=== PATIENT | female | born 1985 | race Caucasian/White ===

== ENCOUNTER 2017-11-27 15:08 | Emergency (ER) | payer OTHER ==
[~2017-11-27] VITALS: Ht 157.5 cm; Wt 81.1 kg
[~2017-11-27 15:08] MED LIST: CLEOCIN300 MG PO; IBUPROFEN200 M1 PO; MILK OF MAGN PO; PERCOCET 5/31 TABLET PO; PROAIR HFA8.5 GM IH; SALINE NOSE SPR45 M1 BOTH NARES; SINUS & ALLERG1 EACH PO; TYLENOL EXTRA500 MG PO; VICKS VAPORUB O50 GM TP
[2017-11-27 15:34] VITALS: BP 129/58
== END 2017-11-27 18:00 | disposition home or self-care (01) ==
LOC: EME 15:08
DX: S30.0XXA Contusion of lower back and pelvis, initial encounter (principal); W00.0XXA Fall on same level due to ice and snow, initial encounter; Y93.01 Activity, walking, marching and hiking; Z88.0 Allergy status to penicillin; Z88.1 Allergy status to other antibiotic agents
CPT/HCPCS: 72220; 99281; 99284